=== PATIENT | female | born 1955 | race Caucasian/White ===

== ENCOUNTER 2020-08-24 14:47 | Outpatient (REF) | payer MEDICARE, SELFPAY ==
--- NOTE | 2020-08-24 | MM_ITS ---
EXAMINATION: BONE DENSITOMETRY CLINICAL INDICATION: Osteoporosis. COMPARISON: Previous BD dated 08/20/2018 and baseline BD dated 09/24/2006. TECHNIQUE: Using a [employer] DXA System (software version: 13.1) manufactured by [employer], dual-energy x-ray absorptiometry was performed of the lumbar spine and left hip. The images are of good technical quality. Summary results are attached. FINDINGS: AP SPINE L1-L4: There is dextrocurvature lumbar spine and some degenerative changes which may cause overestimation of the lumbar bone mineral density. Current: BMD 0.762 g/cm2, Z-score -1.5, T-score -3.5, osteoporosis, 1.0% decrease from previous, 6.5% decrease from baseline (<5% change is not significant). Prior: BMD 0.770 g/cm2. Baseline: BMD 0.815 g/cm2. LEFT FEMUR, NECK: Current: BMD 0.673 g/cm2, Z-score -0.9, T-score -2.6, osteoporosis. Prior: BMD 0.629 g/cm2. Baseline: BMD 0.650 g/cm2. LEFT FEMUR, TOTAL: Current: BMD 0.668 g/cm2, Z-score -1.2, T-score -2.7, osteoporosis, 2.6% decrease from previous, 2.9% decrease from baseline (<5% change is not significant). Prior: BMD 0.686 g/cm2. Baseline: BMD 0.688 g/cm2. IDENTIFIED RISK FACTORS: Osteoporosis, early menopause, secondary osteoporosis, anticonvulsants, hysterectomy, bilateral oophorectomy. HISTORY OF FRACTURE: None listed. MEDICATIONS: Calcium supplements or multivitamin, vitamin D. IMPRESSION: 1. DIAGNOSIS: Osteoporosis based on the lowest T-score value of -3.5 in the lumbar spine applying World Health Organization criteria. 2. 10-YEAR FRACTURE RISK PREDICTION, FRAX: Major osteoporotic fracture (clinical spine, forearm, hip or shoulder) 12.4%. Hip fracture 3.1%. 3. Treatment Recommendations: NOF guidelines recommend consideration for treatment in postmenopausal women and men age 50 and older presenting with the following: -A hip or vertebral (clinical or morphometric) fracture. -T-score less than or equal to -2.5 at the femoral neck or spine after appropriate evaluation to exclude secondary causes. -Low bone mass at the hip or spine and a 10-year fracture probability by FRAX of greater than or equal to 3% for hip fracture or greater than or equal to 20% for major osteoporotic fracture based on the [place] adapted WHO algorithm. 4. Other Recommendations: All treatment decisions require clinical judgment and consideration of individual patient factors, including patient preferences, comorbidities, previous drug use, risk factors not captured in the FRAX model (e.g. frailty, falls, vitamin D deficiency, increased bone turnover, interval significant decline in bone density) and possible under or overestimation of fracture risk by FRAX. Additional medical evaluation for secondary cause of low bone mineral density may be appropriate. FUTURE SCAN RECOMMENDATION: People with diagnosed cases of osteoporosis or at high risk for fracture should have regular bone mineral density tests. For patients eligible for Medicare, routine testing is allowed once every 2 years. The testing frequency can be increased to one year for patients who have rapidly progressing disease, those who are receiving or discontinuing medical therapy to restore bone mass, or have additional risk factors.
== END 2020-08-24 14:48 | disposition home or self-care (01) ==
LOC: HO.MAMMO 14:47
PROVIDERS: PCP Internal Medicine Endocrinology, Diabetes & Metabolism; Visit Provider Internal Medicine Endocrinology, Diabetes & Metabolism
DX: Z13.820 Encounter for screening for osteoporosis (principal); M81.0 Age-related osteoporosis without current pathological fracture; Z78.0 Asymptomatic menopausal state; Z79.899 Other long term (current) drug therapy; Z98.890 Other specified postprocedural states
CPT/HCPCS: 77080

== ENCOUNTER 2021-06-06 07:41 | Outpatient (REF) | payer MEDICARE, SELFPAY ==
--- NOTE | ~2021-06-06 | US_ITS ---
EXAMINATION: US ABDOMEN COMPLETE CLINICAL INFORMATION: Liver cysts. COMPARISON: Ultrasound abdomen 02/09/2020 and 04/10/2019. MR abdomen 02/26/2018. Abdominal ultrasound report January 2006. Images not available. TECHNIQUE: Real-time imaging of the abdominal viscera. FINDINGS: PANCREAS: Normal. ABDOMINAL AORTA: The aorta is normal in caliber. There is evidence of atherosclerotic disease. INFERIOR VENA CAVA: Visualized portions are normal. LIVER: The liver is normal in size. The liver contour is normal. Parenchymal echogenicity is normal. There are 4 cysts seen in the right lobe of the liver. The largest measures 2.7 cm. No other focal liver lesion is seen. There is no intrahepatic biliary duct dilatation seen. GALLBLADDER: Normal. The gallbladder is physiologically distended without evidence of stones, sludge, polyps, wall thickening or pericholecystic fluid. COMMON BILE DUCT: Normal in caliber measuring 0.4 cm in diameter. RIGHT KIDNEY: There is a 6 mm echogenic lesion in the anterior mid to lower pole of the right kidney No hydronephrosis. No renal calculi. The kidney measures 10.1 cm in maximum dimension. LEFT KIDNEY: There is a 7 mm echogenic lesion in the posterior lower pole of the left kidney. No hydronephrosis. No renal calculi. The kidney measures 10.2 cm in maximum dimension. SPLEEN: Normal. The spleen measures 7.6 cm in maximum dimension. FREE FLUID: None. US/US abdomen complete IMPRESSION: Stable liver cysts. Bilateral small echogenic lesions in the kidneys probably representing angiomyolipomas.
== END 2021-06-06 07:42 | disposition home or self-care (01) ==
LOC: HO.US 07:41
PROVIDERS: PCP Internal Medicine; Visit Provider Internal Medicine Gastroenterology
DX: K76.89 Other specified diseases of liver (principal)
CPT/HCPCS: 76700

== ENCOUNTER 2022-06-15 16:27 | Outpatient (REF) | payer MEDICARE, SELFPAY ==
[2022-06-15 18:23] LABS: Alanine Aminotransferase 11 U/L (0-31); Albumin Level 4.5 g/dL (3.5-5.0); Alkaline Phosphatase 68 U/L (39-117); Aspartate Amino Transferase 16 U/L (5-31); Bilirubin Direct 0.2 mg/dL (0.0-0.5); Bilirubin Total 0.4 mg/dL (0.0-1.0); Total Protein 7.2 g/dL (6.5-8.0)
== END 2022-06-15 16:28 | disposition home or self-care (01) ==
LOC: HO.LAB 16:27
PROVIDERS: PCP Family Medicine; Visit Provider Internal Medicine Gastroenterology
DX: R93.2 Abnormal findings on diagnostic imaging of liver and biliary tract (principal); K58.9 Irritable bowel syndrome, unspecified
CPT/HCPCS: 36415; 80076

== ENCOUNTER 2022-06-19 13:13 | Outpatient (REF) | payer MEDICARE, SELFPAY ==
[2022-06-22 16:37] LABS: Fecal Fat Qualitative NORMAL (NORMAL)
[2022-06-26 19:32] LABS: Pancreatic Elastase-1 >500 mcg/g
== END 2022-06-19 13:14 | disposition home or self-care (01) ==
LOC: HO.LNP 13:13
PROVIDERS: Visit Provider Internal Medicine Gastroenterology
DX: R93.2 Abnormal findings on diagnostic imaging of liver and biliary tract (principal); K58.9 Irritable bowel syndrome, unspecified
CPT/HCPCS: 82656; 82705

== ENCOUNTER 2022-09-08 12:51 | Outpatient (REF) | payer MEDICARE, SELFPAY ==
--- NOTE | ~2022-09-08 | MM_ITS ---
EXAMINATION: BONE DENSITOMETRY CLINICAL INDICATION: Menopause. COMPARISON: Previous BD dated 08/24/2020 and baseline BD dated 09/24/2006. TECHNIQUE: Using a [employer] DXA System (software version: 13.1) manufactured by [employer], dual-energy x-ray absorptiometry was performed of the lumbar spine and left hip. The images are of good technical quality. Summary results are attached. FINDINGS: AP SPINE L1-L4: Current: BMD 0.809 g/cm2, Z-score -1.1, T-score -3.1, osteoporosis, 6.2% increase from previous, 0.7% decrease from baseline (<5% change is not significant). Prior: BMD 0.762 g/cm2. Baseline: BMD 0.815 g/cm2. LEFT FEMUR, NECK: Current: BMD 0.594 g/cm2, Z-score -1.4, T-score -3.2, osteoporosis. Prior: BMD 0.673 g/cm2. Baseline: BMD 0.650 g/cm2. LEFT FEMUR, TOTAL: Current: BMD 0.607 g/cm2, Z-score -1.6, T-score -3.2, osteoporosis, 9.1% decrease from previous, 11.8% decrease from baseline (<5% change is not significant). Prior: BMD 0.668 g/cm2. Baseline: BMD 0.688 g/cm2. IDENTIFIED RISK FACTORS: Early menopause, height loss, hysterectomy, bilateral oophorectomy, anticonvulsant, secondary osteoporosis. HISTORY OF FRACTURE: None listed. MEDICATIONS: Vitamin D, calcium. MM/XR DEXA axial skeleton IMPRESSION: 1. DIAGNOSIS: Osteoporosis based on the lowest T-score value of -3.2 in the femur neck and total femur applying World Health Organization criteria. 2. 10-YEAR FRACTURE RISK PREDICTION, FRAX: According to the guidelines, FRAX calculation should only be performed on patients in the osteopenia bone density category. Therefore, FRAX was not performed on this patient. 3. Treatment Recommendations: NOF guidelines recommend consideration for treatment in postmenopausal women and men age 50 and older presenting with the following: -A hip or vertebral (clinical or morphometric) fracture. -T-score less than or equal to -2.5 at the femoral neck or spine after appropriate evaluation to exclude secondary causes. -Low bone mass at the hip or spine and a 10-year fracture probability by FRAX of greater than or equal to 3% for hip fracture or greater than or equal to 20% for major osteoporotic fracture based on the [place] adapted WHO algorithm. 4. Other Recommendations: All treatment decisions require clinical judgment and consideration of individual patient factors, including patient preferences, comorbidities, previous drug use, risk factors not captured in the FRAX model (e.g. frailty, falls, vitamin D deficiency, increased bone turnover, interval significant decline in bone density) and possible under or overestimation of fracture risk by FRAX. Additional medical evaluation for secondary cause of low bone mineral density may be appropriate. FUTURE SCAN RECOMMENDATION: People with diagnosed cases of osteoporosis or at high risk for fracture should have regular bone mineral density tests. For patients eligible for Medicare, routine testing is allowed once every 2 years. The testing frequency can be increased to one year for patients who have rapidly progressing disease, those who are receiving or discontinuing medical therapy to restore bone mass, or have additional risk factors.
== END 2022-09-08 12:52 | disposition home or self-care (01) ==
LOC: HO.MAMMO 12:51
PROVIDERS: Visit Provider Internal Medicine Endocrinology, Diabetes & Metabolism
DX: Z13.820 Encounter for screening for osteoporosis (principal); M81.0 Age-related osteoporosis without current pathological fracture; Z78.0 Asymptomatic menopausal state
CPT/HCPCS: 77080

== ENCOUNTER 2023-02-23 07:17 | Day surgery (SDC) | payer MEDICARE, SELFPAY ==
[2023-02-23 06:00] VITALS: BMI 19.8
--- NOTE | 2023-02-23 07:04 | HO.ANESPROP2 ---
REPLACED BY [facility] Past Medical History Medical History Acne Acute labyrinthitis Anxiety Asthma Breast CA EBV infection Gastritis HTN (hypertension) Hyperlipidemia IBS (irritable bowel syndrome) Internal hemorrhoid Meningioma Migraine Osteoporosis Surgical History Surgical History H/O colonoscopy H/O esophagogastroduodenoscopy H/O hemorrhoidectomy H/O: hysterectomy History of breast lump removal Meds Allergies Allergy/AdvReac Type Severity Reaction Status Date / Time animal dander [PET DANDER] Allergy Intermediate SNEEZING Unverified 08/05/20 16:02 feathers [FEATHERS] Allergy Intermediate COUGH, Unverified 08/05/20 16:02 SNEEZING scopolamine [SCOPOLAMINE] AdvReac Unknown PUPIL Unverified 08/05/20 16:02 DILATION surgical tape Allergy Unknown Uncoded 02/22/23 12:03 Active Medications: Current Medications Lactated Ringer's (Lr) 1,000 mls @ 50 mls/hr IVCONT .Q20H [facility] Home Medications Medication Instructions Recorded Confirmed Last Taken Type Artificial Tears 02/22/23 Unknown History Calcium 500 02/22/23 Unknown History Flonase 02/22/23 Unknown History ProAir HFA 02/22/23 Unknown History Vitamin D3 02/22/23 Unknown History amlodipine 5 mg tablet 5 mg PO DAILY 02/22/23 02/22/23 Unknown History dicyclomine 02/22/23 02/22/23 Unknown History escitalopram oxalate 20 mg tablet 20 mg PO DAILY 02/22/23 02/22/23 Unknown History lorazepam 0.5 mg tablet mg 02/22/23 Unknown History magnesium 02/22/23 Unknown History naltrexone 02/22/23 Unknown History oxcarbazepine 300 mg tablet 300 mg PO BID 02/22/23 02/22/23 Unknown History rizatriptan 5 mg tablet 5 mg QD-BID 02/22/23 02/22/23 Unknown History senna 02/22/23 Unknown History Exam Exam Date and Time: February 23, 2023703 Height,Weight and Vital Signs: Height 5 ft 4.75 in Weight 53.524 kg
[2023-02-23] MEDS: Lactated Ringers 1,000 ML 50 ML IVCONT (07:36)
[2023-02-23 07:45] VITALS: BP 131/71; PULSE 71; RESP 18; TEMP 36.4; O2SAT 99
--- NOTE | 2023-02-23 08:40 | MHC.SHP ---
Pre-Procedural Eval Section A Date of Service: 02/23/23 Section B Chief Complaint: screening,reflux Details of Present Illness: see H&P no changes Relevant Family History (Specify if Yes): No Relevant Social History: None Present Medications: see Short Stay Collaborative assessment Medical History: No relevant PMH History of Previous Operations: No relevant previous surgery Allergies: Allergies Allergy/AdvReac Type Severity Reaction Status Date / Time animal dander [PET DANDER] Allergy Intermediate SNEEZING Verified 02/23/23 07:46 feathers [FEATHERS] Allergy Intermediate COUGH, Verified 02/23/23 07:46 SNEEZING scopolamine [SCOPOLAMINE] AdvReac Unknown PUPIL Verified 02/23/23 07:46 DILATION surgical tape Allergy Unknown Uncoded 02/23/23 07:46 Review of Systems Sugical H&P ROS: Negative: Constitution, Cardiovascular, Respiratory, Neurological, Psychiatric, Hem-Onc, Allergic/Immunologic, Gastrointestinal, Genitourinary, Musculoskeletal, Integumentary, Endocrine and Eyes/Ears/Nose/Throat Plan I have reviewed the history and physical and performed a pertinent physical examination on my patient. No changes have occurred unless specified. Time Spent With Patient Time: Total time managing care of this patient today ____ minutes.
--- NOTE | 2023-02-23 09:08 | HO.ANESPROP2 ---
[facility] Past Medical History Medical History Acne Acute labyrinthitis Anxiety Asthma Breast CA EBV infection Gastritis HTN (hypertension) Hyperlipidemia IBS (irritable bowel syndrome) Internal hemorrhoid Meningioma Migraine Osteoporosis Surgical History Surgical History H/O colonoscopy H/O esophagogastroduodenoscopy H/O hemorrhoidectomy H/O: hysterectomy History of breast lump removal Social History Social History Patient Tobacco Use Status: Former Tobacco user Are you DNR?: No Advance Directives: No Advance Directives Information Provided: Yes Nutrition Risks: No Nutritional Risk Meds Allergies Allergy/AdvReac Type Severity Reaction Status Date / Time animal dander [PET DANDER] Allergy Intermediate SNEEZING Verified 02/23/23 07:46 feathers [FEATHERS] Allergy Intermediate COUGH, Verified 02/23/23 07:46 SNEEZING scopolamine [SCOPOLAMINE] AdvReac Unknown PUPIL Verified 02/23/23 07:46 DILATION surgical tape Allergy Unknown Uncoded 02/23/23 07:46 Active Medications: Current Medications Lactated Ringer's (Lr) 1,000 mls @ 50 mls/hr IVCONT .Q20H [facility] Last Admin: 02/23/23 07:36 Dose: 50 mls/hr Home Medications Medication Instructions Recorded Confirmed Last Taken Type Artificial Tears 02/22/23 Unknown History Calcium 500 02/22/23 Unknown History Flonase 02/22/23 Unknown History ProAir HFA 02/22/23 Unknown History Vitamin D3 02/22/23 Unknown History amlodipine 5 mg tablet 5 mg PO DAILY 02/22/23 02/22/23 Unknown History dicyclomine 02/22/23 02/22/23 Unknown History escitalopram oxalate 20 mg tablet 20 mg PO DAILY 02/22/23 02/22/23 Unknown History lorazepam 0.5 mg tablet mg 02/22/23 Unknown History magnesium 02/22/23 Unknown History naltrexone 02/22/23 Unknown History oxcarbazepine 300 mg tablet 300 mg PO BID 02/22/23 02/22/23 Unknown History rizatriptan 5 mg tablet 5 mg QD-BID 02/22/23 02/22/23 Unknown History senna 02/22/23 Unknown History Exam Exam Date and Time: February 23, 2023 0908 Height,Weight and Vital Signs: Height 5 ft 4.75 in Weight 53.524 kg Last Vital Signs Temp 97.6 F 02/23/23 07:45 Pulse 71 02/23/23 07:45 Resp 18 02/23/23 07:45 BP 131/71 02/23/23 07:45 Pulse Ox 99 02/23/23 07:45 O2 Del Method Room Air 02/23/23 07:45 Airway Mallampati Class: II TM Dist: >3cm Neck ROM: Full Heart: RRR Lungs: CTA Assessment and Plan Final Anesthetic Review Final Preanesthetic Review: Meds/Allgs Chart Reviewed, Consent Obtained/Reviewed and Anes Risks/Benef Reviewed Patient Risk: Low Procedure Risk: Low Anesthetic Plan Anesthetic Plan: MAC: Disposition: Standard PACU
[2023-02-23 09:32] VITALS: BP 100/51; PULSE 67; RESP 16; TEMP 36.4; O2SAT 99
--- NOTE | 2023-02-23 09:37 | P.BOP_ITS ---
Brief Operative Note Date of Service: 02/23/23 Pre-op diagnosis: gerd screening Post-op diagnosis: same Procedure: egd colon Surgeon: Juan Felipe Anesthesia: MAC Was an Engineering Consultant used for this Procedure?: No Estimated blood loss (mL): 5 Pathology: other Condition: stable Disposition: PACU
[2023-02-23 09:48] VITALS: BP 121/64; PULSE 71; RESP 18; TEMP 36.4; O2SAT 99
--- NOTE | 2023-02-23 10:17 | OP_ITS ---
DATE OF SERVICE: 02/23/2023 SURGEON: Juan Felipe MD INDICATIONS: 1. Helicobacter pylori infection. 2. Gastroesophageal reflux disease. 3. Colon cancer screening. PREOPERATIVE DIAGNOSIS: POSTOPERATIVE DIAGNOSIS: PROCEDURE PERFORMED: Upper endoscopy with biopsy, colonoscopy to the terminal ileum. ESTIMATED BLOOD LOSS: COMPLICATIONS: ANESTHESIA: Monitored anesthesia care. ASSISTANTS: SPECIMENS: DESCRIPTION OF PROCEDURE: History and physical performed. The risks and benefits of the procedure explained to the patient. Informed consent was obtained. The patient was placed in left lateral decubitus position. The Olympus video gastroscope was introduced into the esophagus, stomach, and duodenum. Examination was performed. The scope was removed. She was repositioned for colonoscopy. A digital rectal exam was performed and was found to be normal. The Olympus pediatric video colonoscope was introduced into the rectum and advanced to the cecum without difficulty. The cecum was identified by transillumination, palpation, and identification of the ileocecal valve. Examination was performed. The scope was removed. She tolerated the procedure well and was taken to recovery in stable condition. FINDINGS: Upper endoscopy: 1. Esophagus: The esophagus was normal. The EG junction was slightly irregular. This was biopsied. 2. Stomach: Stomach showed no evidence of masses, ulcers, or polyps. Biopsies were obtained from the antrum, because of the patient's history of H pylori infection. 3. Duodenum: The bulb and 2nd portion were normal. Colonoscopy: The terminal ileum was normal. The visualized colonic mucosa was normal. The quality of prep was good. No polyps were identified. There was mild sigmoid diverticulosis. Retroflexed examination showed small internal hemorrhoids. IMPRESSION: 1. Normal upper endoscopy. 2. Normal colonoscopy. RECOMMENDATION: 1. Follow up the biopsy results. 2. Screening colonoscopy is recommended in 10 years for average risk individuals. MD YASHIRA Posey/STEPHEN / [phone]
--- NOTE | 2023-02-23 10:48 | HO.POSTANES ---
Post Anesthesia Evaluation Post Anesthesia Evaluation Vital Signs: Vital Signs Temp Pulse Resp BP Pulse Ox O2 Del Method 02/23/23 09:48 97.6 F 71 18 121/64 99 Room Air 02/23/23 09:32 97.5 F 67 16 100/51 L 99 Room Air 02/23/23 07:45 97.6 F 71 18 131/71 99 Room Air Anesthesia: Monitored Mental Status: Awake Pain Control: Satisfactory Nausea/Vomiting: None Hydration: Adequate Anesthesia-Related Issues: No Anes. Related Issues
== END 2023-02-23 10:30 | disposition home or self-care (01) ==
PROVIDERS: PCP Family Medicine; Visit Provider Internal Medicine Gastroenterology
PROC: (CPT 43239; principal; 2023-02-23 08:20)
DX: Z12.11 Encounter for screening for malignant neoplasm of colon (principal); Z86.010 Personal history of colon polyps; Z83.71 Family history of colonic polyps; K57.30 Diverticulosis of large intestine without perforation or abscess without bleeding; K64.8 Other hemorrhoids; K58.9 Irritable bowel syndrome, unspecified; K21.9 Gastro-esophageal reflux disease without esophagitis; K29.50 Unspecified chronic gastritis without bleeding; Z86.19 Personal history of other infectious and parasitic diseases; D32.0 Benign neoplasm of cerebral meninges; I10 Essential (primary) hypertension; M81.0 Age-related osteoporosis without current pathological fracture; J45.909 Unspecified asthma, uncomplicated; E78.5 Hyperlipidemia, unspecified; Z86.16 Personal history of COVID-19; R53.83 Other fatigue; Z85.3 Personal history of malignant neoplasm of breast; H83.09 Labyrinthitis, unspecified ear; F41.1 Generalized anxiety disorder; Z87.891 Personal history of nicotine dependence; Z79.899 Other long term (current) drug therapy
CPT/HCPCS: 43239; G0105; 88305; 88342

== ENCOUNTER 2024-09-10 13:45 | Outpatient (REF) | payer MEDICARE, SELFPAY ==
--- NOTE | ~2024-09-10 | MM_ITS ---
EXAMINATION: BONE DENSITOMETRY CLINICAL INDICATION: Age-related osteoporosis without current pathological fracture. COMPARISON: Previous BD dated 09/08/2022 and baseline BD dated 09/24/2006. TECHNIQUE: Using a [employer] DXA System (software version: 13.1) manufactured by [employer], dual-energy x-ray absorptiometry was performed of the lumbar spine and left hip. The images are of good technical quality. Summary results are attached. FINDINGS: LEFT FEMUR, NECK: Current: BMD 0.605 g/cm2, Z-score -1.3, T-score -3.1, osteoporosis. Prior: BMD 0.594 g/cm2. Baseline: BMD 0.650 g/cm2. LEFT FEMUR, TOTAL: Current: BMD 0.581 g/cm2, Z-score -1.8, T-score -3.4, osteoporosis, 4.3% decrease from previous, 15.6% decrease from baseline (<5% change is not significant). Prior: BMD 0.607 g/cm2. Baseline: BMD 0.688 g/cm2. AP SPINE L1-L4: Current: BMD 0.761 g/cm2, Z-score -1.5, T-score -3.5, osteoporosis, 5.9% decrease from previous, 6.6% decrease from baseline (<5% change is not significant). Prior: BMD 0.809 g/cm2. Baseline: BMD 0.815 g/cm2. IDENTIFIED RISK FACTORS: Early menopause, height loss, history of fracture (adult), bilateral oophorectomy, anticonvulsants, hysterectomy, osteoporosis, secondary osteoporosis. HISTORY OF FRACTURE: Rib. MEDICATIONS: Calcium, vitamin D. MM/XR DEXA axial skeleton IMPRESSION: 1. DIAGNOSIS: Osteoporosis based on the lowest T-score value of -3.5 in the lumbar spine applying World Health Organization criteria. 2. 10-YEAR FRACTURE RISK PREDICTION, FRAX: According to the guidelines, FRAX calculation should only be performed on patients in the osteopenia bone density category. Therefore, FRAX was not performed on this patient. 3. Treatment Recommendations: NOF guidelines recommend consideration for treatment in postmenopausal women and men age 50 and older presenting with the following: -A hip or vertebral (clinical or morphometric) fracture. -T-score less than or equal to -2.5 at the femoral neck or spine after appropriate evaluation to exclude secondary causes. -Low bone mass at the hip or spine and a 10-year fracture probability by FRAX of greater than or equal to 3% for hip fracture or greater than or equal to 20% for major osteoporotic fracture based on the [place] adapted WHO algorithm. 4. Other Recommendations: All treatment decisions require clinical judgment and consideration of individual patient factors, including patient preferences, comorbidities, previous drug use, risk factors not captured in the FRAX model (e.g. frailty, falls, vitamin D deficiency, increased bone turnover, interval significant decline in bone density) and possible under or overestimation of fracture risk by FRAX. Additional medical evaluation for secondary cause of low bone mineral density may be appropriate. FUTURE SCAN RECOMMENDATION: People with diagnosed cases of osteoporosis or at high risk for fracture should have regular bone mineral density tests. For patients eligible for Medicare, routine testing is allowed once every 2 years. The testing frequency can be increased to one year for patients who have rapidly progressing disease, those who are receiving or discontinuing medical therapy to restore bone mass, or have additional risk factors. Electronically signed by: Rock Dalton MD 09/11/2024 02:32 PM EDT
== END 2024-09-10 13:46 | disposition home or self-care (01) ==
LOC: HO.MAMMO 13:45
PROVIDERS: PCP Family Medicine; Visit Provider Physician Assistant
DX: M81.0 Age-related osteoporosis without current pathological fracture (principal)
CPT/HCPCS: 77080

== ENCOUNTER 2025-04-08 07:51 | Outpatient (REF) | payer MEDICARE, SELFPAY ==
--- NOTE | ~2025-04-08 | US_ITS ---
EXAMINATION: US ABDOMEN HISTORY: GENERALIZED ABD PAIN TECHNIQUE: Real-time grayscale ultrasound imaging of the abdomen was performed and images were reviewed. COMPARISON: Comparison is made with the prior examination dated 06/06/2021. FINDINGS: Liver: The liver is normal in size. The liver demonstrates normal homogeneous echotexture. There are multiple simple cysts measuring up to 3.6 x 3.3 x 3.3 cm. No intrahepatic biliary ductal dilatation is identified. There is normal hepatopedal flow in the portal vein. Gallbladder and biliary tree: The gallbladder is unremarkable, without evidence of calculi, wall thickening, or pericholecystic fluid. There is no sonographic Winters sign. The common bile duct is normal in caliber measuring 4 mm. Kidneys: The right kidney measures 9.7 cm in length and demonstrates an 8 mm hyperechoic focus in the interpolar region which likely represents an angiomyolipoma (previously 6 mm in size). The left kidney measures 9.7 cm in length and demonstrates a 10 x 9 x 7 mm echogenic focus in the interpolar region which likely represents an angiomyolipoma (previously 8 mm in size). There is no hydronephrosis. Pancreas: The pancreatic head, neck, and body are unremarkable. The pancreatic tail is obscured by bowel gas. Spleen: The spleen is normal in size and contour, measuring 6.4 cm in length. Abdominal aorta and inferior vena cava: The visualized portions of the abdominal aorta and inferior vena cava are normal in caliber. There is no free fluid in the abdomen. 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 Otherwise unremarkable abdominal ultrasound Electronically signed by: Deshawn Monroy MD 04/08/2025 08:48 AM EDT
== END 2025-04-08 07:52 | disposition home or self-care (01) ==
LOC: HO.US 07:51
PROVIDERS: PCP Family Medicine; Visit Provider Internal Medicine Gastroenterology
DX: R10.84 Generalized abdominal pain (principal)
CPT/HCPCS: 76700

== ENCOUNTER → 2025-04-08 07:54 | Outpatient (BNV) | payer MEDICARE, SELFPAY | PROVIDERS: PCP Family Medicine; Visit Provider Radiology Diagnostic Radiology | DX: Q44.6 Cystic disease of liver (principal) | CPT/HCPCS: 76700 ==

== ENCOUNTER 2025-05-18 12:06 | Outpatient (REF) | payer MEDICARE, SELFPAY ==
--- OUTSIDE RECORDS SUMMARY | 2025-05-18 12:46 | XMS_ITS | Continuity of Care Document ---
Author Organization [facility], Main Office Address [address] [place] [address] [place] [id number] Care Team Providers Care Customer Service Sales Associate Name Role Phone LITZY FELIPE JR Architect Internship [phone] NIKKI LI Sales Designer EREN KATE Senior Software Systems Engineer [facility] Psychiatrist [facility] CLAIMS ADJUSTER SUPERVISOR Slot Operations Manager JADEN CROWE Psychiatrist EMRE CHACON Primary Care Provider FABIANA ROSARIO Neurologist TOBY BHATT Dialysis Clinical Manager Assessment No assessment recorded. Plan of Treatment Reminders Order Date Submit Date Provider Last Modified By Organization Details Last Modified Time Details Appointments [id number] 2024 01:30P M Emre Chacon MD Not available Not available Not available Lab None recorded. Referral None recorded. Procedures None recorded. Surgeries None recorded. Imaging None recorded. Medication Orders amlodipin e 5 mg tablet 2024 025 [facility] #[id number], [address], [place], [address], 05/13/2025 13:18:18 Patient TargetsNo targets recorded. Patient Instructions Encounter Date Encounter Id Patient Instructions Last Modified By Organization Details Last Modified Time 05/13/2025 [id number] osteoporosis: care instructions [email or web address] Not available 05/13/2025 13:27:29 high blood pressure: care instructions [email or web address] Not available 05/13/2025 13:18:16 learning about high blood pressure ckokar Not available 05/13/2025 13:18:16 Reason for Referral None Reported. Problems Name Problem SNOMED Code Status Onset Date Resolution Date Notes Provider Name and Address Organization Details Recorded Time Left lower quadrant pain 964747920 Completed 200806/25/2014 RECORDED 07/13/20 09 8:24AM BY MARYLIN OSULLIVAN MA, HUMBERTO ON/ADDEN DUM Not Available [facility] 4 12:35:44 Blood chemistr y outside referenc e range 066345562 Completed 201206/25/2014 RECORDED 07/30/20 13 1:35PM BY MARYLIN OSULLIVAN MA, ANNOTATI ON/ADDEN DUM Not Available [facility] 4 12:35:44 Acute bronchit is 42542019 Completed 201106/25/2014 IMPRESSI ON: SAMPLES OF PROAIR AND ADVAIR TO PT, NO PREDNISO NE NEEDED; RECORDED 07/17/20 12 7:53AM BY CRIS ZAPATA MA, HUMBERTO ON/ADDEN DUM Not Available [facility] 4 12:35:44 Acute sinusiti s 03594102 Completed 201206/25/2014 RECORDED 07/30/20 13 1:35PM BY MARYLIN OSULLIVAN MA, ANNOTATI ON/ADDEN DUM Not Available [facility] 4 12:35:44 Anemia 056327036 Completed 200906/25/2014 RECORDED 06/21/20 10 8:23AM BY BRAD ZARAGOZA MD, JOANATI ON/ADDEN DUM Not Available [facility] 4 12:35:44 Adult health examinat ion Completed 201306/25/2014 RECORDED 04/21/20 14 8:34AM BY MARYLIN OSULLIVAN MA, ANNOTATI ON/ADDEN DUM Joselyn Salmeron PA-C [address] [facility] [address], [place], [address] , [facility] 3 10:01:37 Acute asthma 348618919 Completed 200906/25/2014 RECORDED 06/21/20 10 8:30AM BY BRAD ZARAGOZA MD, ANNOTATI ON/ADDEN DUM Not Available [facility] 4 12:35:44 Primary malignan t neoplasm of female breast 87546768 Completed 201006/25/2014 RECORDED 03/17/20 11 11:43AM BY MARYLIN OSULLIVAN MA, ANNOTATI ON/ADDEN DUM Not Available [facility] 4 12:35:45 Screenin g for malignan t neoplasm of breast Completed 201306/25/2014 RECORDED 03/10/20 14 7:49AM BY AJAY BURNS I, ANNOTATI ON/ADDEN DUM Not Available [facility] 4 12:35:45 Impacted cerumen 80826740 Completed 201106/25/2014 IMPRESSI ON: REMOVED SUCCESSF ULLY; RECORDED 01/09/20 12 7:42AM BY BRAD ZARAGOZA MD, ANNOTATI ON/ADDEN DUM ARIS Thao [facility] 7 09:46:39 Screenin g for malignan t neoplasm of cervix Completed 201106/25/2014 RECORDED 07/17/20 12 7:54AM BY CRIS ZAPATA MA, ANNOTATI ON/ADDEN DUM Not Available [facility] 4 12:35:45 Screenin g for malignan t neoplasm of colon Completed 201306/25/2014 RECORDED 03/10/20 14 7:48AM BY AJAY BURNS I, ANNOTATI ON/ADDEN DUM Not Available [facility] 4 12:35:45 Respirat ory finding 918820693 Completed 200806/25/2014 RECORDED 05/27/20 09 3:07PM BY ARIS IVY, ANNOTATI ON/ADDEN DUM Not Available [facility] 4 12:35:45 Dysuria 05505685 Completed 200806/25/2014 RECORDED 07/13/20 09 8:24AM BY MARYLIN OSULLIVAN MA, ANNOTATI ON/ADDEN DUM Not Available [facility] 4 12:35:45 Elevated blood-pr essure reading without diagnosi s of hyperten dru 076329563 Completed 201206/25/2014 RECORDED 09/12/20 13 9:52AM BY MARYLIN OSULLIVAN MA, ANNOTATI ON/ADDEN DUM Not Available [facility] 4 12:35:45 Enthesop athy of hip region 16849888 Completed 201106/25/2014 IMPRESSI ON: ? DISCOMFO RT IN GROIN AREA, POSSIBLE HIP FLEXOR STRAIN.; RECORDED 01/09/20 12 7:42AM BY BRAD ZARAGOZA MD, ANNOTATI ON/ADDEN DUM Not Available [facility] 4 12:35:45 External hemorrho ids 51041228 Completed 201106/25/2014 RECORDED 07/17/20 12 7:54AM BY CRIS ZAPATA MA, ANNOTATI ON/ADDEN DUM Not Available [facility] 4 12:35:45 Malaise and fatigue 722200866 Completed 201311/13/2023 Emre Chacon MD [address] [facility] [address], [facility] [place], [address] , [facility] 3 13:27:35 Influenz a vaccine needed 77076797331 06 Completed 201206/25/2014 RECORDED 11/13/20 13 8:58AM BY MARYLIN OSULLIVAN MA, ANNOTATI ON/ADDEN DUM Not Available [facility] 4 12:35:45 Immuniza tion refused Completed 201206/25/2014 STORY: FLU SHOT; RECORDED 10/01/20 13 12:44PM BY MARYLIN OSULLIVAN MA, ANNOTATI ON/ADDEN DUM Not Available [facility] 4 12:35:45 Internal hemorrho ids 27862535 Completed 201206/25/2014 RECORDED 11/13/20 13 8:58AM BY MARYLIN OSULLIVAN MA, ANNOTATI ON/ADDEN DUM Not Available [facility] 4 12:35:45 Administ ration of diphther ia and tetanus vaccine Completed 201206/25/2014 RECORDED 07/30/20 13 1:36PM BY MARYLIN OSULLIVAN MA, HUMBERTO ON/ADDEN DUM Not Available [facility] 4 12:35:46 Vitreous degenera tion 02837337 Active 2013 JORGE OZUNA I (OPTOMET RIST) ARIS Navarro [place] - [facility] 2 11:39:48 Left lower quadrant pain 832480835 Completed 200806/26/2014 RECORDED 07/13/20 09 8:24AM BY MARYLIN OSULLIVAN MA, HUMBERTO ON/ADDEN DUM Not Available [facility] 4 03:41:52 Blood chemistr y outside referenc e range 747257864 Completed 201206/26/2014 RECORDED 07/30/20 13 1:35PM BY MARYLIN OSULLIVAN MA, ANNOTSILVANA ON/ADDEN DUM Not Available [facility] 4 03:41:52 Acute bronchit is 00551883 Completed 201106/26/2014 IMPRESSI ON: SAMPLES OF PROAIR AND ADVAIR TO PT, NO PREDNISO NE NEEDED; RECORDED 07/17/20 12 7:53AM BY CRIS ZAPATA MA, ANNOTATI ON/ADDEN DUM Not Available [facility] 4 03:41:52 Acute sinusiti s 20810505 Completed 201206/26/2014 RECORDED 07/30/20 13 1:35PM BY MARYLIN OSULLIVAN MA, ANNOTATI ON/ADDEN DUM Not Available [facility] 4 03:41:52 Anemia 734201151 Completed 200906/26/2014 RECORDED 06/21/20 10 8:23AM BY BRAD ZARAGOZA MD, JOANATI ON/ADDEN DUM Not Available [facility] 4 03:41:52 Adult health examinat ion Completed 201306/26/2014 RECORDED 04/21/20 14 8:34AM BY MARYLIN OSULLIVAN MA, ANNOTATI ON/ADDEN DUM Joselyn Salmeron PA-C [address], [place], [address] , [facility] 3 10:01:37 Acute asthma 594320513 Completed 200906/26/2014 RECORDED 06/21/20 10 8:30AM BY BRAD ZARAGOZA MD, ANNOTATI ON/ADDEN DUM Not Available [facility] 4 03:41:52 Primary malignan t neoplasm of female breast 47485226 Completed 201006/26/2014 RECORDED 03/17/20 11 11:43AM BY MARYLIN OSULLIVAN MA, ANNOTATI ON/ADDEN DUM Not Available [facility] 4 03:41:52 Screenin g for malignan t neoplasm of breast Completed 201306/26/2014 RECORDED 03/10/20 14 7:49AM BY AJAY BURNS I, ANNOTATI ON/ADDEN DUM Not Available [facility] 4 03:41:52 Impacted cerumen 68734919 Completed 201106/26/2014 IMPRESSI ON: REMOVED SUCCESSF ULLY; RECORDED 01/09/20 12 7:42AM BY BRAD ZARAGOZA MD, ANNOTATI ON/ADDEN DUM Marylin luna MA null, [facility] 7 09:46:39 Screenin g for malignan t neoplasm of cervix Completed 201106/26/2014 RECORDED 07/17/20 12 7:54AM BY CRIS ZAPATA MA, ANNOTATI ON/ADDEN DUM Not Available [facility] 4 03:41:53 Screenin g for malignan t neoplasm of colon Completed 201306/26/2014 RECORDED 03/10/20 14 7:48AM BY AJAY BURNS I, ANNOTATI ON/ADDEN DUM Not Available [facility] 4 03:41:53 Respirat ory finding 328832988 Completed 200806/26/2014 RECORDED 05/27/20 09 3:07PM BY ARIS IVY, JOANATI ON/ADDEN DUM Not Available [facility] 4 03:41:53 Dysuria 73756773 Completed 200806/26/2014 RECORDED 07/13/20 09 8:24AM BY MARYLIN OSULLIVAN MA, ANNOTATI ON/ADDEN DUM Not Available [facility] 4 03:41:53 Elevated blood-pr essure reading without diagnosi s of hyperten dru 210924892 Completed 201206/26/2014 RECORDED 09/12/20 13 9:52AM BY MARYLIN OSULLIVAN MA, ANNOTATI ON/ADDEN DUM Not Available [facility] 4 03:41:53 Enthesop athy of hip region 84461612 Completed 201106/26/2014 IMPRESSI ON: ? DISCOMFO RT IN GROIN AREA, POSSIBLE HIP FLEXOR STRAIN.; RECORDED 01/09/20 12 7:42AM BY BRAD ZARAGOZA MD, ANNOTATI ON/ADDEN DUM Not Available [facility] 4 03:41:53 External hemorrho ids 82367594 Completed 201106/26/2014 RECORDED 07/17/20 12 7:54AM BY CRIS ZAPATA MA, ANNOTATI ON/ADDEN DUM Not Available [facility] 4 03:41:53 Influenz a vaccine needed 10495933070 06 Completed 201206/26/2014 RECORDED 11/13/20 13 8:58AM BY MARYLIN OSULLIVAN MA, ANNOTATI ON/ADDEN DUM Not Available [facility] 4 03:41:53 Immuniza tion refused Completed 201206/26/2014 STORY: FLU SHOT; RECORDED 10/01/20 13 12:44PM BY MARYLIN OSULLIVAN MA, ANNOTATI ON/ADDEN DUM Not Available [facility] 4 03:41:53 Internal hemorrho ids 68648119 Completed 201206/26/2014 RECORDED 11/13/20 13 8:58AM BY MARYLIN OSULLIVAN MA, ANNOTATI ON/ADDEN DUM Not Available [facility] 4 03:41:53 Administ ration of diphther ia and tetanus vaccine Completed 201206/26/2014 RECORDED 07/30/20 13 1:36PM BY MARYLIN OSULLIVAN MA, ANNOTATI ON/ADDEN DUM Not Available [facility] 4 03:41:53 Carpal tunnel syndrome 02458519 Active ARIS Navarro, [facility] 2 11:39:48 Pain of sacroili ac joint 835266912 Completed 11/14/2024 Emre Chacon MD [address] [facility] [address], [place], [address] , [facility] 4 13:50:20 Major depressi on in partial remissio n 89443793 Active ARIS Navarro [facility] 2 11:39:48 Fatigue 62954013 Completed 02/06/2017 ARIS Thao [facility] 7 09:46:48 Obstruct gerard sleep apnea of adult 82670319515 03 Active 2014 does not use CPAP ARIS Navarro [facility] 2 11:39:48 Ex-smoke r 0383546 Active 2017 ARIS Navarro [facility] 2 11:39:48 Constipa tion 27118722 Active 2017 ARIS Navarro [facility] 2 11:39:49 Bilatera l cataract s 47474661 Active 2017 mild ARIS Navarro [facility] 2 11:39:48 Tubular adenoma 637283534 Active 2018 ARIS Navarro [facility] 2 11:39:48 Sleep apnea 67357551 Completed 201411/13/2023 Emre Chacon MD [address], [place], [address] , [facility] 3 13:28:08 Depressi ve disorder 15679883 Completed 201010/11/2020 Brad Zaragoza MD [address] [facility] [address], [place], [address] , [facility] 0 11:19:48 Family history of cancer of colon 051654685 Active 2018 Not Available [facility] 2 12:19:07 Backache 672560390 [facility] 2 11:39:48 Atrophic vaginiti s 90836773 Active 2010 ARIS Navarro, [facility] 2 11:39:48 Genital herpes simplex 97701151 Active 2013 [facility] 2 11:39:48 History of malignan t neoplasm of breast 612941139 Active 2013 [facility] 2 11:39:48 Hypercho lesterol emia 15738944 Completed 201611/13/2023 Emre Chacon MD [address], [place], [address] , [facility] 3 13:27:08 Benign meningio aris 878527999 Active 2019 right afua, followed by Dr Maik villagomez, has [facility]2y [facility] 2 11:39:48 History of total hysterec loretta 768580339 Active ARIS Navarro [facility] 2 11:39:48 Mild intermit tent asthma 576059289 Completed 201911/13/2023 Emre Chacon MD [address] [address], [place], [address] , [facility] 3 13:27:43 Hyperten dru monitori ng status 204427657 Active 2021 disenrol led ARIS Navarro, [facility] 2 11:39:48 Patient encounte r status 986323836 Completed 11/13/2023 Emre Chacon MD [address] [address], [place], [address] , [facility] 3 13:27:50 Irritabl e bowel syndrome characte rized by constipa tion 094000611 Active ARIS Navarro, [facility] 2 11:39:48 Ultrason ography of liver abnormal 17147443123 178656 Active liver cyst, followed GI. Emre Chacon MD [address] [address], [place], [address] , [facility] 3 13:28:37 Right upper quadrant pain 933889503 Completed 11/13/2023 Emre Chacon MD [address] [address], [place], [address] , [facility] 3 13:28:01 Gastroes ophageal reflux disease without esophagi tis 543381921 Active ARIS Navarro, [facility] 2 11:39:48 Abdomina l pain 29248797 Active 2024 MARS Moe [address] [address], [place], [address] , [facility] 5 09:39:25 Right-si ded piriform is syndrome 10689373990 9108 Active 2024 [facility] Marte, [facility] [address], [facility] [place], [address] , [facility] 5 09:43:05 Left lower quadrant pain 339365638 Completed 200806/02/2014 RECORDED 07/13/20 09 8:24AM BY MARYLIN OSULLIVAN MA, ANNOTATI ON/ADDEN DUM Not Available [facility] 4 14:15:03 Blood chemistr y outside referenc e range 408516108 Completed 201206/02/2014 RECORDED 07/30/20 13 1:35PM BY MARYLIN OSULLIVAN MA, ANNOTATI ON/ADDEN DUM Not Available [facility] 4 14:15:03 Acne 93250863 Active 2013 ARIS Navarro, [facility] 2 11:39:48 Acute bronchit is 46316045 Completed 201106/02/2014 IMPRESSI ON: SAMPLES OF PROAIR AND ADVAIR TO PT, NO PREDNISO NE NEEDED; RECORDED 07/17/20 12 7:53AM BY CRIS ZAPATA MA, ANNOTATI ON/ADDEN DUM Not Available [facility] 4 14:15:04 Acute sinusiti s 44053680 Completed 201206/02/2014 RECORDED 07/30/20 13 1:35PM BY MARYLIN OSULLIVAN MA, ANNOTATI ON/ADDEN DUM Not Available [facility] 4 14:15:04 Allergic rhinitis 76636216 Active 2013 ARIS Navarro [facility] 2 11:39:48 Anemia 128764698 Completed 200906/02/2014 RECORDED 06/21/20 10 8:23AM BY BRAD ZARAGOZA MD, ANNOTATI ON/ADDEN DUM Not Available [facility] 4 14:15:04 Anxiety state 300937907 Active 2010 Nikki Babb MA null, [facility] 2 11:39:48 Acute asthma 269666676 Completed 200906/02/2014 RECORDED 06/21/20 10 8:30AM BY BRAD ZARAGOZA MD, ANNOTATI ON/ADDEN DUM Not Available [facility] 4 14:15:04 Intrinsi c asthma 170048951 Active 2013 Nikkichristen Babb MA null, [facility] 2 11:39:48 Primary malignan t neoplasm of female breast 41286734 Completed 201006/02/2014 RECORDED 03/17/20 11 11:43AM BY MARYLIN OSULLIVAN MA, ANNOTATI ON/ADDEN DUM Not Available [facility] 4 14:15:04 Screenin g for malignan t neoplasm of breast Completed 201306/02/2014 RECORDED 03/10/20 14 7:49AM BY AJAY BURNS I, ANNOTATI ON/ADDEN DUM Not Available [facility] 4 14:15:04 Impacted cerumen 23149524 Completed 201106/02/2014 IMPRESSI ON: REMOVED SUCCESSF ULLY; RECORDED 01/09/20 12 7:42AM BY BRAD ZARAGOZA MD, ANNOTATI ON/ADDEN DUM Marylin luna MA null, [facility] 7 09:46:39 Screenin g for malignan t neoplasm of cervix Completed 201106/02/2014 RECORDED 07/17/20 12 7:54AM BY CRIS ZAPATA MA, ANNOTATI ON/ADDEN DUM Not Available [facility] 4 14:15:04 Screenin g for malignan t neoplasm of colon Completed 201306/02/2014 RECORDED 03/10/20 14 7:48AM BY AJAY BURNS I, ANNOTATI ON/ADDEN DUM Not Available [facility] 4 14:15:04 Respirat ory finding 479750958 Completed 200806/02/2014 RECORDED 05/27/20 09 3:07PM BY ARIS IVY, ANNOTATI ON/ADDEN DUM Not Available [facility] 4 14:15:04 Dysuria 85991164 Completed 200806/02/2014 RECORDED 07/13/20 09 8:24AM BY MARYLIN OSULLIVAN MA, ANNOTATI ON/ADDEN DUM Not Available [facility] 4 14:15:04 Elevated blood-pr essure reading without diagnosi s of hyperten dru 709434313 Completed 201206/02/2014 RECORDED 09/12/20 13 9:52AM BY MARYLIN OSULLIVAN MA, ANNOTATI ON/ADDEN DUM Not Available [facility] 4 14:15:05 Enthesop athy of hip region 74941301 Completed 201106/02/2014 IMPRESSI ON: ? DISCOMFO RT IN GROIN AREA, POSSIBLE HIP FLEXOR STRAIN.; RECORDED 01/09/20 12 7:42AM BY BRAD ZARAGOZA MD, ANNOTATI ON/ADDEN DUM Not Available [facility] 4 14:15:05 Essentia l hyperten dru 67336211 Active 2013 Nikki Babb MA [facility], [facility] 2 11:39:48 External hemorrho ids 83525756 Completed 201106/02/2014 RECORDED 07/17/20 12 7:54AM BY CRIS ZAPATA MA, ANNOTATI ON/ADDEN DUM Not Available [facility] 4 14:15:05 Malaise and fatigue 584738858 Completed 201206/02/2014 RECORDED 07/30/20 13 1:36PM BY MARYLIN OSULLIVAN MA, ANNOTATI ON/ADDEN DUM Emre Chacon MD [address] [facility] [address], [place], [address] , [facility] 3 13:27:35 Influenz a vaccine needed 58014603121 06 Completed 201206/02/2014 RECORDED 11/13/20 13 8:58AM BY MARYLIN OSULLIVAN MA, ANNOTATI ON/ADDEN DUM Not Available [facility] 4 14:15:05 Hyperlip idemia 40127442 Active 2013 ARIS Navarro, [facility] 2 11:39:48 Impacted cerumen 59614834 Completed 201302/06/2017 ARIS Thao, [facility] 7 09:46:39 Immuniza tion refused Completed 201206/02/2014 STORY: FLU SHOT; RECORDED 10/01/20 13 12:44PM BY MARYLIN OSULLIVAN MA, ANNOTATI ON/ADDEN DUM Not Available [facility] 4 14:15:05 Insomnia 273367881 Completed 201311/13/2023 Emre Chacon MD [address] [facility], [facility] [place], [address] , [facility] 3 13:27:15 Internal hemorrho ids 44193612 Completed 201206/02/2014 RECORDED 11/13/20 13 8:58AM BY MARYLIN OSULLIVAN MA, ANNOTATI ON/ADDEN DUM Not Available [facility] 4 14:15:05 Irritabl e bowel syndrome 61469582 Active 2010 constipa tion predomin ant, followed [facility] and Dr Felipe Not Available [facility] 2 12:19:08 Benign neoplasm of cerebral meninges 07795302 Active 2013 COMPLETE D RADIATIO N AT [facility] 05/26/13- ARIS Navarro, [facility] 2 11:39:48 Migraine 84350933 Active 2013 ARIS Navarro, [facility] 2 11:39:48 Patient status finding 027899276 Completed 201308/03/2016 RECORDED 04/21/20 14 8:41AM BY MARYLIN OSULLIVAN MA, OFFICE VISIT ARIS Thao, [facility] 6 09:34:19 Patient status finding 872996978 Completed 201306/02/2014 RECORDED 03/10/20 14 7:49AM BY AJAY BURNS I, JOANATI ON/ADDEN DUM ARIS Thao, [facility] 6 09:34:19 Osteopor osis 97342744 Active 2013 ARIS Navarro, [facility] 2 11:39:48 Adult health examinat ion Completed 201106/02/2014 RECORDED 07/17/20 12 7:54AM BY CRIS ZAPATA MA, ANNOTATI ON/ADDEN DUM Joselyn Salmeron PA-C [address] [facility] [address], [place], [address] , [facility] 3 10:01:37 Administ ration of diphther ia and tetanus vaccine Completed 201206/02/2014 RECORDED 07/30/20 13 1:36PM BY MARYLIN OSULLIVAN MA, ANNOTATI ON/ADDEN DUM Not Available [facility] 4 14:15:06 Problem Notes None recorded. Procedures Surgical History Date Name Laterality Status Provider Name and Address Organization Details Recorded Time 025 Most Recent Mammogram completed Kassandra Oshea [facility] 03/11/2025 13:02:22 025 Mammogram Screening completed Kassandra Oshea [facility] 03/11/2025 13:01:42 024 Advanced Care Planning completed Lenore Reich [facility] 11/25/2024 11:40:21 023 Advanced Care Planning completed Emre Chacon MD [address], [place], [address], [facility] 11/13/2023 07:41:23 023 Colonoscopy completed Diane Toribio [facility] 02/27/2023 09:55:33 023 Endoscopic us exam esoph completed Diane Toribio [facility] 02/27/2023 09:55:17 022 Advanced Care Planning completed Lenore Reich [facility] 11/09/2022 12:17:09 022 Most Recent Bone Density completed Nikki Babb MA [facility] 11/07/2022 11:47:53 021 Advanced Care Planning completed Emre Chacon MD [address], [place], [address], [facility] 10/12/2021 08:51:22 021 Date of Last Pap Smear completed Cinthia Tariq [facility] 07/14/2021 15:58:24 020 Six-Item Cognitive Test completed Marylin blair MA [facility] 10/11/2020 10:56:55 019 Date of Last Colonoscopy completed Nadja Piper [facility] 03/22/2019 08:53:44 019 rectal polypectomy completed Mihaela Magana [facility] 03/24/2019 09:28:54 018 Dxa bone density rosey vrt fx completed Cinthia Tariq [facility] 08/30/2018 15:40:58 008 Hemorrhoidectomy completed Marylin blair MA [facility] 10/30/2014 08:54:27 000 Total Abdominal Hysterectomy completed Marylin blair MA [facility] 02/06/2017 09:55:35 000 lumpectomy of breast completed Marylin blair MA [facility] 10/11/2020 10:50:16 Imaging Results None recorded. Procedure Notes None recorded. Medical Equipment None Reported. Allergies Allergen ID Allergen Name Allergen Category Reaction Reaction Severity Criticality Documentation Date Start Date Code Code System Note Provider Name and Address Organization Details Recorded Time 31210 scopolami ne medicatio n Not available Not available Not available 07/30/20142014 9601 RxNorm Cinthia Tariq tc [facility] 0 13:24:22 1884 house dust allergeni c extract environme nt,medica tion Not available Not available Not available 06/02/20142013 65870 9 RxNorm Nikki Chris ARIS Babb [facility] 2 11:40:55 1885 latex environme nt,medica tion other Not available Not available 06/02/20142013 [id number] 91 RxNorm *sens itivi ty* ARIS Wolfe [facility] 4 09:26:40 [id number] animal dander environme nt Not available Not available Not available 03/03/2019 [id number] UNK [facility] 10:57[facility]13 Medications Name Sig Start Date Stop Date Status Note LastModified by Organization Details LastModified Time naltrexon e 6mg capsule 1 capsule po at bedtime PRN 10/12 completed Prescrib ed by [facility] Med: for peristal sis Not Available Not Available Not Available digestive enzymes tablet Take 1 tablet as needed by oral route with meals. active Not Available Not Available No t Available Miralax 17 gram/dose oral powder Take 17 g every day by oral route as needed. 11/14 completed Not Available Not Available Not Available Vitamin C 500 mg tablet Take 1 tablet every day by oral route. active Not Available Not Available No t Available L-Lysine 500 mg tablet Take 1 tablet every other day by oral route. 11/07 completed for Hermelinda Almazan Not Available Not Available Not Available citalopra m 10 mg tablet DAILY 07/30 completed RECORDED 07/30/20 13 1:44PM BY MARYLIN OSULLIVAN MA, OFFICE VISIT; Not Available Not Available Not Available valacyclo vir 1 gram tablet Take 1 tablet every day by oral route as needed for 5 days. 2023 active for cold sores Not Available Not Available Not Available senna 8.6 mg tablet Take 1 tablet every day by oral route as needed. 11/14 completed Not Available Not Available Not Available alendrona te 70 mg tablet active Not Available Not Available Not Available Excedrin Migraine 250 mg-250 mg-65 mg tablet Take 2 tablets every 6 hours by oral route as needed. active Not Available Not Available No t Available Zithromax Z-Bryon 250 mg tablet QD 08/27 completed RECORDED 09/29/20 08 11:16AM BY BYRON FRANKEL MD, MEDICATI ON AUTO-JUDY CTIVATIO N; Not Available Not Available Not Available sumatript an 50 mg tablet Take 1 tablet as needed by oral route. 10/11 completed Not Available Not Available Not Available amlodipin e 2.5 mg tablet Take 2 tablets every day by oral route for 90 days. 08/16 completed 07/18/22 pt will increase from 2.5 mg qd to 5 mg qd and f/u in 1 month Not Available Not Available Not Available oxcarbaze pine 300 mg tablet TAKE 1/2 TABLET BY MOUTH EVERY DAY AT BEDTIME active Not Available Not Available No t Available amlodipin e 5 mg tablet Take 1 tablet every day by oral route for 90 days. 2024 active Not Available Not Available Not Avai lable valacyclo vir 500 mg tablet Take 1 tablet twice a day by oral route for 90 days. 11/07 completed Not Available Not Available Not Available butalbita l-acetami nophen-ca ffeine 50 mg-325 mg-40 mg tablet TAKE 1 TABLET BY MOUTH EVERY 4 HOURS NEEDED. DO NOT EXCEED 6 TABS PER 24 HOURS. 10/12 completed Not Available Not Available Not Available Azelex 20 % topical cream Use two times daily to affected area 11/07 completed Not Available Not Available Not Available erythromy cierra 250 mg tablet TAKE 1/4 TABLET BY MOUTH AT BEDTIME 10/11 completed Not Available Not Available Not Available Hyoscyami ne Sulfate CR 0.375 mg capsule,e xtended release Take 1 capsule every 12 hours by oral route as needed. 08/29 completed for IBS Not Available Not Available Not Available Fluticaso ne Propionat e (Inhal) 50 mcg/BLIST inhl powd 2 SPRAYS DAILY, EACH SIDE 02/06 completed Not Available Not Available Not Available lorazepam 0.5 mg tablet TAKE 1 TABLET BY MOUTH EVERY DAY NEEDED active Not Available Not Available No t Available hyoscyami ne sulfate 0.125 mg tablet Take 1 tablet twice a day by oral route as needed. 02/15 completed for IBS Not Available Not Available Not Available Trileptal 150 mg tablet every 24 hours by oral route. 02/19 completed Not Available Not Available Not Available omeprazol e 20 mg capsule,d elayed release 02/19 completed Not Available Not Available Not Available zinc 50 mg tablet Take 1 tablet every day by oral route as needed. 11/14 completed Not Available Not Available Not Available Nasonex 50 mcg/actua tion Pacifica EACH SIDE DAILY 07/31 completed RECORDED 07/31/20 13 8:46AM BY BRAD ZARAGOZA MD, OFFICE VISIT; Not Available Not Available Not Available levofloxa cierra 500 mg tablet QD 04/02 completed RECORDED 05/09/20 10 3:53PM BY JUNE Camilo MD, MEDICATI ON AUTO-JUDY CTIVATIO N; Not Available Not Available Not Available L-Methion ine 500 mg tablet Take 1 tablet every day by oral route. 04/24 completed *ON HOLD* Not Available Not Available Not Available neomycin 500 mg tablet TAKE 1 TABLET BY MOUTH TWICE A DAY 10/11 completed Not Available Not Available Not Available albuterol sulfate HFA 90 mcg/actua tion aerosol inhaler TAKE 2 PUFFS BY MOUTH EVERY 4 HOURS NEEDED 11/14 completed Not Available Not Available Not Available fluticaso ne propionat e 50 mcg/actua tion nasal spray,quoc pension Inhale 1 spray every day by intranas al route. active Not Available Not Available No t Available dicyclomi ne 10 mg capsule TAKE 1 CAPSULE ORALLY 2-4 TIMES A DAY 30 DAYS active PRN Not Available Not Available No t Available nortripty line 50 mg capsule AT BEDTIME 01/27 completed RECORDED 01/28/20 14 8:16AM BY ÓGMEZ SPIVEY MA, OFFICE VISIT; Not Available Not Available Not Available amoxicill in 875 mg-potass ium clavulana te 125 mg tablet TWO TIMES DAILY 01/31 completed RECORDED 02/12/20 13 7:03AM BY BRAD ZARAGOZA MD, MEDICATI ON AUTO-JUDY CTIVATIO N; Not Available Not Available Not Available rizatript an 5 mg tablet TAKE 1 TABLET ONCE, MAY REPEAT AT 2 HOUR INTERVAL S DO NOT EXCEED 30 MG IN 24 HOURS active Not Available Not Available No t Available Adult Supposito cesar rectal 07/30 completed RECORDED 07/30/20 13 1:44PM BY MARYLIN OSULLIVAN MA, OFFICE VISIT;DR Faye FELIPE Not Available Not Available Not Available albuterol (refill) 90 mcg/actua tion aerosol inhaler Inhale 2 puffs every 4 hours by inhalati on route as needed. 02/06 completed Not Available Not Available Not Available escitalop babatunde 10 mg tablet Take 1 tablet every day by oral route for 30 days. 10/11 completed Not Available Not Available Not Available escitalop babatunde 20 mg tablet TAKE 1 TABLET BY MOUTH EVERY DAY active Not Available Not Available No t Available ezetimibe 10 mg tablet TAKE 1 TABLET BY MOUTH EVERYDAY AT BEDTIME active Not Available Not Available No t Available Vitamin D3 25 mcg (1,000 unit) capsule Take 3 capsules every day by oral route. active THREE TIMES A WEEK Not Available Not Available Not Available codeine-g uaifenesi n oral syrup Q 6HRS PRN COUGH 06/21 completed RECORDED 06/21/20 10 7:54AM BY MARYLIN OSULLIVAN MA, OFFICE VISIT; Not Available Not Available Not Available rosuvasta tin 5 mg tablet TAKE 1 TABLET BY MOUTH EVERYDAY AT BEDTIME 12/24 completed GI side effects Not Available Not Available Not Available escitalop babatunde 5 mg tablet every 24 hours by oral route. 07/01 completed Not Available Not Available Not Available ascorbic acid (vitamin C) 03/28 completed prn Not Available Not Available Not Available Artificia l Tears 2 drops OU, as needed - strength on bottle active Not Available Not Available No t Available choline with inositol - 500 mg po daily 04/24 completed for choleste rol- unsure of strength ON HOLD Not Available Not Available Not Available senna 1 po as needed for constipa tion 02/06 completed Not Available Not Available Not Available echinacea active takes prn Not Available Not Available Not Available Pamelor 1 CAP(S), QHS, 30 DAY(S) 10/11 completed Not Available Not Available Not Available Fish Oil 03/28 completed PRN Not Available Not Available Not Available Norvasc 1 TAB(S), 2.5 MG, ONCE A DAY, 30 DAY(S) 02/19 completed Not Available Not Available Not Available hyoscyami ne sulfate TWO TIMES DAILY, NEEDED 08/07 completed for IBS Not Available Not Available Not Available Saline Nasal Pacifica as needed via nostril active Not Available Not Available No t Available Ativan 1 TAB(S), 0.5 MG, PRN, 30 DAY(S) 02/14 completed Not Available Not Available Not Available hyoscyami ne BID 02/05 completed RECORDED 02/06/20 07 8:54AM BY MARYLIN OSULLIVAN MA, MEDICATI ON AUTO-JUDY CTIVATIO N;THIS ORDER DISCONTI NUED PER MEDI-SPA N. Not Available Not Available Not Available Valtrex 1 TAB(S), 1 G, PRN, 3 DAYS 02/14 completed Not Available Not Available Not Available Miralax 17 gram po daily, mixed with water 08/07 completed Not Available Not Available Not Available multivita min 1 tablet po daily active Not Available Not Available No t Available Tylenol Sinus NEEDED active Not Available Not Available No t Available Calcium 500 1 tablet po daily active Not Available Not Available No t Available Excedrin 07/17 completed RECORDED 07/17/20 12 12:54PM BY CRIS ZAPATA MA, OFFICE VISIT;OT C Not Available Not Available Not Available Zostavax (PF) 19,400 unit/0.65 mL subcutane ous suspensio n 02/06 completed Not Available Not Available Not Available Veramyst 27.5 mcg/actua tion nasal spray,quoc pension QD active RECORDED 07/13/20 09 8:25AM BY MARYLIN OSULLIVAN MA, OFFICE VISIT; Not Available Not Available Not Available Actonel 150 mg tablet MONTHLY 03/19 completed RECORDED 03/19/20 12 12:59PM BY MARYLIN OSULLIVAN MA, OFFICE VISIT;DR Faye LIU Not Available Not Available Not Available Gavilyte- C 240 gram-22.7 2 gram-6.72 gram-5.84 gram oral solution 03/03 completed Not Available Not Available Not Available lutein 10 mg tablet Take 1 tablet every day by oral route as needed. 04/08 completed Not Available Not Available Not Available Vitamin D3 125 mcg (5,000 unit) tablet Take 1 tablet every day by oral route. 03/28 completed Mixed with vitamin K Not Available Not Available Not Available Vitamin D3 50 mcg (2,000 unit) capsule Take 2 capsules every day by oral route. 04/08 completed Not Available Not Available Not Available antipyrin e-benzoca ine 5.5 %-1.4 % ear drops 3 TIMES PER DAY FILLING AFFECTED EAR CANAL 11/13 completed RECORDED 11/13/20 13 9:20AM BY MARYLIN OSULLIVAN MA, OFFICE VISIT; Not Available Not Available Not Available sorbitan monolaura te (bulk) 600 mg po daily 03/28 completed Not Available Not Available Not Available Fish Oil capsule Take 1 capsule every day by oral route. 05/14 completed ON HOLD Not Available Not Available Not Available Benefiber Healthy Shape 5 gram/7.4 gram oral powder Take 5 g every day by oral route as directed . active Not Available Not Available No t Available Daily Probiotic (10 Strains) 4 billion cell capsule Take 1 capsule every day by oral route. active MegaSpor e- as needed Not Available Not Available Not Available Fluzone High-Dose Quad (PF) 240 mcg/0.7 mL IM syringe ADM 0.7ML IM UTD 10/11 completed Not Available Not Available Not Available Vitals Date Recorded Body height Body mass index (BMI) Body weight Heart rate Oxygen saturation Oxygen saturation in Arterial blood by Pulse oximetry Body temperature Systolic blood pressure Diastolic blood pressure Provider Name and Address Organization Details Last Updated DateTime 5 164.47 cm 20.1 kg/m2 93222.0 8 g 80 /min 98 % 98 % 98.5 [degF] 122 mm[Hg] 70 mm[Hg] Benita Valentino MA [facility] 5 13:07:51 Social History Question Answer Notes LastModified by Organizat ion Details LastModified Time Tobacco Smoking Status Former Smoker ARIS Giordano [facility] 07/30/2014 09:34:04 Do You Have An Advance Directive? Yes Has Original HCP At Home Information not available 02/01/2016 Is Blood Transfusion Acceptable In An Emergency? Yes Information not available 02/01/2016 What Is Your Level Of Caffeine Consumption? Moderate 1 Cup Of Coffee Daily Information not available 03/28/2022 How Much Tobacco Do You Chew? None Information not available 02/01/2016 What Type Of Diet Are You Following? REGULAR Portion Control; No Added Salt Information not available 07/30/2014 Which Illicit Or Recreational Drugs Have You Used? None Information not available 07/30/2014 When Did You Quit Smoking? 16+yearssin celastcigar ette Information not available 10/11/2020 Are There Any Guns Present In Your Home? No Information not available 07/30/2014 Hard Of Hearing Or Deaf In One Or Both Ears? No Information not available 07/30/2014 Legally Blind In One Or Both Eyes? No Information not available 07/30/2014 Live Alone Or With Others? Alone Dog [email or web address] Information not available 11/07/2022 Do You Take Precautions To Prevent Distracted Driving? Yes Information not available 02/01/2016 How Often Do You Need To Have Someone Help You When You Read Instructions, Pamphlets, Or Other Written Material From Your Doctor Or Pharmacy? Never Information not available 02/01/2016 Have You Served In The ? No Information not available 08/03/2016 Have You Or Anyone In Your Household Had Any Of The Following Symptoms In The Last 14 Days: Sore Throat, Cough, Chills, Body Aches For Unknown Reasons, Shortness Of Breath For Unknown Reasons, Loss Of Smell, Loss Of Taste, Fever At Or Greater Than 100 Degrees Fahrenheit? No Information not available 10/11/2020 Are You Or Anyone In Your Household A Health Care Provider Or Emergency Responder? No Information not available 10/11/2020 To The Best Of Your Knowledge Have You Been In Close Proximity To Any Individual Who Tested Positive For COVID-19? No Information not available 10/11/2020 *AWV ONLY* Are You Presently Prescribed Opioid Medication By PCP Or Specialist? If YES -Provider Assess The Benefit For Other, Non-opioid Pain Therapies Instead, Even If The Patient Does Not Have OUD But Is Possibly At Risk. No Information not available 10/11/2020 What Was The Date Of Your Most Recent Tobacco Screening? 01/29/2025 Information not available 01/29/2025 How Many Children Do You Have? 0 Information not available 07/30/2014 What Is Your Current Pack Years? 10packyears Information not available 03/28/2022 Seat Belts Used Routinely Yes Information not available 02/01/2016 Are You Sexually Active? No Information not available 02/01/2016 Smoke Alarm In Home Yes Information not available 07/30/2014 At What Age Did You Start Smoking Tobacco? 20 Quit At 21 Information not available 02/01/2016 Are You Passively Exposed To Smoke? Yes Information not available 02/01/2016 Do You Use Sunscreen Routinely? No Information not available 02/01/2016 How Many Years Have You Smoked Tobacco? 1 Information not available 02/01/2016 Sex: Unknown Functional Status Question Answer Note LastModified by Organizat ion Details LastModified Time Do you use any illicit or recreational drugs? No Information not available 03/28/2022 Do you or have you ever used any other forms of tobacco or nicotine? No Information not available 03/28/2022 What is your level of alcohol consumption? None Information not available 07/30/2014 Do you or have you ever used smokeless tobacco? Never used smokeless tobacco Information not available 10/11/2020 Are you currently employed? No retired as of January 2015 Information not available 07/30/2014 Are you able to walk? YESWOREST Information not available 03/28/2022 Are you able to care for yourself? 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 Never used electronic cigarettes Information not available 10/11/2020 What is your exercise level? Moderate cardio (4-6 x week); treadmill, elliptical, bike, gym machines Information not available 07/30/2014 Mental Status None recorded. Family History Relationship Description Onset Age of this Age Resolved Age Notes LastModified by Organization Details LastModified Time Mother End stage chronic obstructive pulmonary disease [email or web address] s Not available 10/30/2014 08:54:32 Mother Coronary arterioscler osis bsolivanmatto s Not available 10/30/2014 08:54:32 Father Coronary arterioscler osis bsolivanmatto s Not available 10/30/2014 08:54:32 Father Atrial fibrillation bsolivanmatto s Not available 10/30/2014 08:54:32 Brother Neoplasm of brain 48 50 bsolivanmatto s Not available 07/18/2022 10:05:32 Paternal Grandmother Primary malignant neoplasm of stomach bsolivanmatto s Not available 10/30/2014 08:54:32 Unspecified Relation Malignant tumor of pancreas 80 patern al cousin carito s Not available 08/19/2018 11:14:16 Unspecified Relation Carcinoma of pancreas 80 cousin zako s Not available 03/03/2019 11:04:51 Medical History No medical history recorded. Gynecological History Statement/Question Response Date of Last Pap Smear 07/05/2021 Current Control Method Hysterectom y Date of Last Colonoscopy 03/14/2019 Most Recent Mammogram 03/10/2025 Most Recent Bone Density 09/08/2022 Obstetrics History GPAL:G 0 P 0 0 0 0 Immunizations Vaccine Type Date Status Note Provider Nam e and Address Organization Details Recorded Time zoster live 5 completed ARIS Navarro [facility] 11/07/2022 11:40:15 COVID-19, mRNA, LNP-S, PF, 30 mcg/0.3 mL dose 1 completed ARIS Navarro [facility] 11/07/2022 11:40:15 COVID-19, mRNA, LNP-S, PF, 30 mcg/0.3 mL dose 1 completed ARIS Navarro [facility] 11/07/2022 11:40:15 COVID-19, mRNA, LNP-S, PF, 30 mcg/0.3 mL dose 1 completed ARIS Navarro [facility] 11/07/2022 11:40:14 COVID-19, mRNA, LNP-S, PF, 30 mcg/0.3 mL dose, gian-sucrose 2 completed ARIS Navarro [facility] 11/07/2022 11:40:14 pneumococcal polysaccharide PPV23 0 completed ARIS Navarro [facility] 11/07/2022 11:40:14 Influenza, split virus, trivalent, PF 4 completed ARIS Navarro [facility] 11/07/2022 11:40:15 Influenza, split virus, quadrivalent, PF 5 completed Nikki Babb ARIS tc, [facility] 11/07/2022 11:40:15 Influenza, split virus, quadrivalent, PF 6 completed Nikki Babb [facility]IS tc, [facility] 11/07/2022 11:40:15 Influenza, split virus, quadrivalent, PF 9 completed Nikki Babb ARIS null, [facility] 11/07/2022 11:55:45 Influenza, split virus, quadrivalent, PF 8 completed Nikki Babb ARIS tc, [facility] 11/07/2022 11:55:45 Influenza, high-dose, quadrivalent, PF 0 completed Nikki Babb [facility]IS tc, [facility] 11/07/2022 11:55:45 Influenza, high-dose, quadrivalent, PF 1 completed Nikki Babb [facility], [facility] 11/07/2022 11:55:45 Influenza, split virus, quadrivalent, PF 7 completed Nikki Babb [facility] t[facility], [facility] 11/07/2022 11:55:45 COVID-19, mRNA, LNP-S, bivalent, PF, 30 mcg/0.3 mL dose 2 completed Nikki Babb [facility]IS tc, [facility] 11/07/2022 11:55:45 Influenza, high-dose, quadrivalent, PF 2 completed ARIS Navarro, [facility] 11/07/2022 11:55:45 COVID-19, mRNA, LNP-S, PF, gian-sucrose, 30 mcg/0.3 mL 3 completed ARIS Gutierrez, [facility] 05/14/2024 12:52:27 Td (adult), 2 Lf tetanus toxoid, preservative free, adsorbed 7 completed ARIS Navarro, [facility] 11/07/2022 11:40:15 Tdap 3 completed ARIS Navarro, [facility] 11/07/2022 11:40:14 Influenza, split virus, trivalent, preservative 3 completed ARIS Navarro, [facility] 11/07/2022 11:40:14 Influenza, adjuvanted, trivalent, PF 4 completed Diane montez, [facility] 09/23/2024 11:44:06 COVID-19, mRNA, LNP-S, PF, 50 mcg/0.5 mL 5 completed Diane montez [facility] 01/12/2025 08:40:57 Td (adult), 2 Lf tetanus toxoid, preservative free, adsorbed 3 completed ARIS Stearns, [facility] 04/24/2023 13:53:21 Influenza, high-dose, quadrivalent, PF 3 completed Joselyn Salmeron PA-C [address], [address], [facility] 08/07/2023 10:29:54 Past Encounters Encounter ID Performer Location Encounter Start Date Encounter Closed Date Diagnosis/Indication Diagnosis SNOMED-CT Code Diagnosis ICD10 Code Diagnosis Note [id number] Emre Chacon MD Main Office [address] [id number] 05/13/2025 13:01:43 05/13/2025 13:30:45 Essential hypertension 67216015 I10 BP well controlled on current dose. Will continue, tolerating well. Obstructiv e sleep apnea of adult 9389687676 103 G47.33 Cannot tolerate CPAP, working on positon.De isaac sx. Will monitor for now. Benign meningioma 372198 006 D32.9 Follow neuro, stable. Gets MRI every yrs Lipoma of intra-abdominal organs 90096067 D17.71 Asymptomat ic agreed to monitor for now. Osteoporosis 53219802 M8 1.0 Follows endo.To get reclast. Health Concerns Section Related Observation LastModified by Organization Detai ls LastModified Time None Recorded Concern Status LastModified by Organization Details LastModified Time None Recorded Payers Encounter Date Sequence Insurance Name Policy Number Policy Zhang Covered Member ID Zhang Member ID Guarantor Name 05/13/2025 1 [place] [employer] Ewa Elliott [id number] Ewa Elliott 05/13/2025 2 [place] [id number] Ewa Elliott [id number] Ewa Elliott Notes Date Note Type Note Provider Name and Address Organization Details Recorded Time 05/13/2025 text/html Hypertension F/UReported bypatient.Associat ed Symptoms:no dizziness; no lightheadedness; no chest pain; no shortness of breath; no palpitations; no edema; no calf pain with exertion Lifestyle:regular exercise; exercises 2-4 times/week; exercises for 30-90 minutes/day; limiting/avoiding salt Medications:taking medications as directed; no side effects from medication; checks blood pressure at home, range: (under 130/90) Follow up for BP.Plans for reclast in fall for osteoporosis. Emre Chacon MD [address] [address], [place], [address], [facility] 05/13/2025 13:27:53 OBGyn Episode No OBEpisode recorded.
--- OUTSIDE RECORDS SUMMARY | 2025-05-18 12:46 | XMS_ITS | Continuity of Care Document ---
Author Organization [facility] [address] [place] [address] Phone [phone] Care Team Providers Care Project Economist Name Role Phone Emre Guillermo MD Care Team Information Receive r [phone] Problems Active Problems Provider Date Irritable bowel syndrome Clara Perry M.D. Onset: 01/26/2023 Chronic constipation Lorena Page Onset: 01/26/2023 Osteoporosis Clara Perry M.D. Ons et: 01/26/2023 Multinodular goiter Clara Perry M.D. Onset: 01/26/2023 Diverticulitis Clara Perry M.D. Ons et: 01/26/2023 Benign paroxysmal positional vertigo Clara Sood M.D. Onset: 01/26/2023 Benign meningioma Clara Perry M.D. O nset: 01/26/2023 Migraine Clara Perry M.D. Ons et: 01/26/2023 Anxiety Clara Perry M.D. Ons et: 01/26/2023 Depressive disorder Clara Perry M.D. Onset: 01/26/2023 Obstructive sleep apnea syndrome Clara Simental M.D. Onset: 01/26/2023 Low back pain Clara Perry M.D. Ons et: 01/26/2023 Carcinoma of breast Clara Perry M.D. 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 02/06/2024 Multivitamin Adults 50+Adlt 50+ Tablets 1 by mouth every day Clara Perry M.D. 02/06/2024 Escitalopram Udkndvu22gt Tablets Take 1 daily Unknown 00 Amlodipine Dmsfdplr5aw Tablets Take 1 daily Terrie Guillermo MD Botydoiebjwvc931vp Tablets Take 1/2 tablet at night Unknown Rizatriptan Fmojlgvz6bo Tablets Take 1 Tablet Once, May Repeat AT 2 Hour Intervals DO Not Exceed 30 MG In 24 Leena Unknown Valacyclovir AYP628ht Tablets Take 1 Tablet By Mouth Twice A Day Unknown Flonase Allergy Jelwop58hdh/Act Suspension Two sprays each nostril daily 9.900ml Clara Perry M.D. Lorazepam0.5mg Tablets 1 tabs prn Unknown Sqthtmxdt06uv Tablets Take 1 Tablet By Mouth Everyday AT Bedtime Emre Guillermo MD Vital Signs Date Vital Result Comment 2025 2:32pm BP Systolic 118 mmHg BP Diastolic 78 mmHg Heart Rate 86 /min Height 64.5 inches 5'4.50 Weight 120.00 lb BMI (Body Mass Index) 20.3 kg/m2 Results Test Acquired Date Facility Test Result H/L Range Note Creatinine 01/27/2025 [facility] Creatinine 0.66 mg/dL 0.57-1.00 eGFR 95 mL/min/1.73 >59 Calcium 01/27/2025 [facility] Calcium 8.9 mg/dL 8.7-10.3 Albumin 01/27/2025 [facility] Albumin 4.3 g/dL 3.9-4.9 TSH Rfx on Abnormal to Free T4 01/27/2025 [facility] TSH Rfx on Abnormal to Free T4 0.639 uIU/mL 0.450-4.5 00 Calcium 11/05/2024 [facility] Calcium <pending> Albumin 11/05/2024 [facility] Albumin <pending> Creatinine 11/05/2024 [facility] Creatinine <pending> TSH RFX On Abnormal To Free T4 09/15/2024 [facility] TSH RFX On Abnormal To Free T4 <pending> Alk Phos 07/07/2022 [facility] Alk Phos 70 U/L (35-104) 25Oh Vitamin D 07/07/2022 [facility] 25Oh Vitamin D 34.8 NG/ML (20-50) N-Telopeptide Cross Links, Urine 07/07/2022 [facility] Cross Linked N-Telopeptides 154 1 Creat, Urine 70.7 2 N-Telopeptide/C re at Ratio 25 3 NTX Interpretaion Comment 4 1 Reference range: Not Estab. Unit: nmol BCE Test performed at [address] [address] 2 Reference range: Not Estab. Unit: mg/dL Test performed by [facility], [address] [place] [address] 3 Reference range: 0 t o 89 Unit: nM BCE/mM Cr 4 (NOTE) The N-telopeptide and Creatinine are used to calculate the N-telo/Creat. Ratio which is referred to as NTx . Suggested guidelines for the clinical use of NTx are as follows: 1. Menopausal Women not on Hormone Replacement Therapy (HRT): Women with a baseline NTx value >38 are at significant risk for a decrease in bone mineral density (BMD) after 1 year compared to women on HRT. The probability of a decline in BMD increases with NTx value as follows: (1): Baseline NTx Probability of Decrease in BMD 18- 38 1.4 p EQ 0.28 38- 51 2.5 p EQ 0.03 51- 67 3.8 p EQ 0.0006 67-188 17.3 p EQ 0.0001 2. Menopausal Women Receiving Antiresorptive Therapy: The probability that treatment is effective after three months is increased when the measured NTx value is <or EQ 38 nM BCE/mM MAIL ORDER BILLER, or NTx has decreased >or EQ 30% from baseline.[1] 3. Patients with Paget's Disease of Bone: The probability that treatment is effective after one month is increased when the measured NTx value is within the reference range, or NTx has decreased >or EQ 30% from baseline.[2] 1. Candace CH, Judy NH, Calin ALEGRE, et al. Am J Med, 102:29-37,1996. (1):M757, 1995. 2. Bone H, Priyanka J, et al. J Bone Min Res.11(1):M757,1995 [place] [address] Medical Devices Description No Information Available Encounters Type Date Location Provider Dx Diagnosis Office Visit 2025 2:30p Main Office Clara Perry M.D. M81.0 Age-related osteoporosis w/o current pathological fracture E04.2 Nontoxic multinodula r goiter Assessments Date Code Description Provider 2025 M81.0 Age-related oste oporosis without current pathological fracture Clara Perry M.D. 2025 E04.2 Nontoxic multinodular goiter Clara Perry M.D. Plan of Treatment Future Appointment(s):* 09/16/2025 3:15 pm - Clara Perry M.D. at Main Office 01/26/2023 - Clara Perry M.D.* M81.0 Age-related osteoporosis without current pathological fracture * E04.2 Nontoxic multinodular goiter Functional Status Description No Information Available Mental Status Description No Information Available Referrals Description No Information Available
--- OUTSIDE RECORDS SUMMARY | 2025-05-18 12:46 | XMS_ITS | Patient Health Record ---
Author Organization [facility] Address [address] [place] [address] Care Team Providers Care Field Crop I Farmworker Name Role Phone Emre Guillermo Primary Care Provider Juan Beltran Jr Unavailable [phone] Allergies Allergen (clinical drug ingredient) Drug/Non Drug Allergy documented on EMR Reaction Allergy Type Onset Date Status Scopolamine HBr Unknown Drug Allergy A ctive surgical tape (uncoded) Unknown Allergy Active enviromental trigger s (uncoded) Unknown Allergy Active Results Component Value Reference Range Notes US abdomen complete Reviewed date:04/09/2025 11:13:44 AM Interpretation: Performing Lab: Notes/Report: [address] [address] Ultrasound Report Signed Patient: Ewa Robins MR#: [id number] 3 : 1955 Acct:[id number] Age/Sex: 70 / F ADM Date: 04/08/25 Loc: HO.US Attending Dr: Juan Felipe MD Ordering Physician: Juan Felipe MD Date of Service: 04/08/25 Procedure(s): US abdomen complete Accession Number(s): [id number] cc: Juan Felipe MD; Emre Guillermo MD EXAMINATION: US ABDOMEN HISTORY: GENERALIZED ABD PAIN TECHNIQUE: Real-time grayscale ultrasound imaging of the abdomen was performed and images were reviewed. COMPARISON: Comparison is made with the prior examination dated 06/06/2021. FINDINGS: Liver: The liver is normal in size. The liver demonstrates normal homogeneous echotexture. There are multiple simple cysts measuring up to 3.6 x 3.3 x 3.3 cm. No intrahepatic biliary ductal dilatation is identified. There is normal hepatopedal flow in the portal vein. Gallbladder and biliary tree: The gallbladder is unremarkable, without evidence of calculi, wall thickening, or pericholecystic fluid. There is no sonographic Winters sign. The common bile duct is normal in caliber measuring 4 mm. Kidneys: The right kidney measures 9.7 cm in length and demonstrates an 8 mm hyperechoic focus in the interpolar region which likely represents an angiomyolipoma (previously 6 mm in size). The left kidney measures 9.7 cm in length and demonstrates a 10 x 9 x 7 mm echogenic focus in the interpolar region which likely represents an angiomyolipoma (previously 8 mm in size). There is no hydronephrosis. Pancreas: The pancreatic head, neck, and body are unremarkable. The pancreatic tail is obscured by bowel gas. Spleen: The spleen is normal in size and contour, measuring 6.4 cm in length. Abdominal aorta and inferior vena cava: The visualized portions of the abdominal aorta and inferior vena cava are normal in caliber. There is no free fluid in the abdomen. 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 Otherwise unremarkable abdominal ultrasound Electronically signed by: Deshawn Monroy MD 04/08/2025 08:48 AM EDT Dictated By: Deshawn Monroy MD Signed By: <Electronically signed by Dsehawn Monroy MD in OV> 04/08/25 0848 DD/ 0807 TD/TT: 04/08/25 0826 Enrollment Management Coordinator: Reason For Referral No Information Medications Medication SIG (Take, Route, Frequency, Duration) Notes Start Date End Date Status Fiber - as directed Orally A ctive Calcium 500 MG 1 tablet with meals Orally Once a day Active Rizatriptan Benzoate 5 MG 1 tablet Orally prn Active Saline Nasal [place] 0.65 % 2 sprays in each nostril as needed Nasally as directed/prn PRN Active Naltrexone 3 as directed at bedtime/prn Active MiraLax - 1 packet mixed with 8 ounces of fluid Orally Once a day PRN Active Rosuvastatin Calcium 5 MG 1 tablet Orally Once a day for 30 day(s) on hold Active Zetia 10 MG 1 tablet Orally Once a day for 30 day(s) on hold Active Lysine Active Flonase Allergy Relief 50 MCG/ACT 1 spray in each nostril Nasally Once a day for 30 day(s) Active Dicyclomine HCl 10 MG 1 tablet Orally 2- 4 times a day for 30 days as needed 04/04/2019 Not-Taking Enzyme pancremax bid Act gerard Magnesium 250 MG 1 capsule with a meal Orally bid Active Probiotic - megasporam once a day PRN Active Multi-Enzyme Active Artificial Tear 2 drops 2 drops in each eye as directed/as needed Active Citalopram Hydrobromide 20 MG 1 tablet ,, sunday all other days 10 mg Orally Once a day/prn Active Multivitamin Adult - 1 tablet Orally onc e a day Active amLODIPine Besylate 5 MG 1 tablet Orally Once a day Active Flonase Active LORazepam 0.5 MG 0.5 ml as needed Orally as needed Active Tylenol Sinus Convenience Pack -- 1 tablet orally as needed/as directed Active OXcarbazepine 150 MG 1 tablet Orally onc e a day Active Vitamin D3 2000 UNIT 1 capsule Orally Once a day Active valACYclovir HCl 1 GM 1 tablet Orally prn PRN Active Immunizations Vaccine Route Administration Date Status Comme nts Flu vaccine no Preserv 3 and > Unknown 07/31/2017 Admin istered Influenza Unknown 09/03/2018 Administered Influenza Unknown 08/19/2019 Administered Influenza Unknown 08/04/2020 Administered Influenza Unknown 09/12/2021 Administered Influenza Unknown 08/02/2022 Administered Influenza Unknown 09/04/2023 Administered Influenza Unknown 08/05/2024 Administered Social History Tobacco Use: Social History Observation Description Date Details (start date - stop date) Former Smoker NA - NA Tobacco Use/Smoking Question Answer Notes Patient is a former smoker Problems Problem Type SNOMED Code ICD Code Onset Dates Problem Status W/U Status Risk Notes Problem 927566796 Colon cancer screening (Z12.11) Active confirmed Problem Diverticular disease of colon (236948454) Diverticulosis of large intestine without perforation or abscess without bleeding (K57.30) Active confirmed Problem Irritable bowel syndrome (71587612) IBS (irritable bowel syndrome) (K58.9) Active confirmed Problem Gastroesophageal reflux disease (850118960) Gastroesophageal reflux disease (K21.9) Active confirmed Problem 439308689 Gastroesophageal reflux disease without esophagitis (K21.9) Active confirmed Problem 180939546 Family history o f colon cancer (Z80.0) Active confirmed Problem 09292100824546084 Abnormal ultrasound of liver (R93.2) Active confirmed Problem 627985407 Irritable bowel syndrome with constipation (K58.1) Active confirmed Problem 823534702 RUQ pain (R10.11) Active confirmed Vital Signs Temperature 98.9 degrees Fahrenheit 05/18/2025 Blood pressure diastolic 01 mm Hg 05/18/2025 Height 64.75 in 05/18/2025 Blood pressure systolic 001 mm Hg 05/18/2025 Weight 120 lbs 05/18/2025 BMI 20.12 kg/m2 05/18/2025 Encounters Encounter Location Date Provider Diagnosis [facility] [address] [place] [phone] 05/18/2025 Juan Felipe Jr IBS (irritable bowel syndrome) K58.9 and Abnormal ultrasound of liver R93.2 [facility] [address] [place] [phone] 08/25/2024 Juan Felipe Jr Gastroesophageal reflux disease without esophagitis K21.9 and IBS (irritable bowel syndrome) K58.9 [facility] [address] [place] [phone] 11/24/2024 Juan Felipe Jr [facility] [address] [place] [phone] 02/25/2025 Juan Felipe Jr Generalized abdominal pain R10.84 [facility] [address] [place] [phone] 04/09/2025 Juan Felipe Jr [facility] [address] [place] [phone] 04/24/2025 Juan Felipe Jr Assessments Encounter Date Diagnosis (ICD Code) Assessment Notes Treatment Notes Treatment Clinical Notes Section Notes 05/18/2025 IBS (irritable bowel syndrome) (ICD-10 - K58.9) We discussed he r symptoms today. We recommended she continue to use Metamucil and MiraLAX to regulate her bowels. She will have further evaluation of her concerns regarding celiac disease with tissue transglutaminase antibody testing as well as IgA levels. Liver function test will be obtained because of her abdominal ultrasound as these have not been updated in some time. Follow-up will be in 6 to 12 months. We reviewed her CT scan from earlier in the year which showed no evidence of any acute GI pathology involving her stomach small bowel or colon. 08/25/2024 IBS (irritable bowel syndrome) (ICD-10 - K58.9) Currently, she appears to be doing well. We discussed gastroesophageal reflux disease and irritable bowel syndrome. We discussed diet, lifestyle modifications, and weight management. She will continue her present regimen. Followup will be in 6-12 months. She'll call if she has problems. 08/25/2024 Gastroesophageal reflux disease without esophagitis (ICD-10 - K21.9) Gastroesophageal reflux disease material was printed Currently, she appears to be doing well. We discussed gastroesophageal reflux disease and irritable bowel syndrome. We discussed diet, lifestyle modifications, and weight management. She will continue her present regimen. Followup will be in 6-12 months. She'll call if she has problems. 02/25/2025 Generalized abdominal pain (ICD-10 - R10.84) 05/18/2025 Abnormal ultrasound of liver (ICD-10 - R93.2) We discussed her symptoms today. We recommended she continue to use Metamucil and MiraLAX to regulate her bowels. She will have further evaluation of her concerns regarding celiac disease with tissue transglutaminase antibody testing as well as IgA levels. Liver function test will be obtained because of her abdominal ultrasound as these have not been updated in some time. Follow-up will be in 6 to 12 months. We reviewed her CT scan from earlier in the year which showed no evidence of any acute GI pathology involving her stomach small bowel or colon. Plan Of Treatment Pending Test Test Name Order Date BUN 02/20/2018 CREATININE 02/20/2018 LIVER PROFILE 05/18/2025 LIVER PROFILE 06/15/2022 IgA 05/18/2025 TRANSGLUTAMINASE AB IGA 05/18/2025 PANCREATIC ELASTASE 06/15/2022 FECAL FAT QUAL 06/15/2022 MRI ABD W&WO CONTRAST 02/20/2018 US abdomen complete 02/25/2025 Future Test Test Name Order Date COLONOSCOPY 10/04/2022 Next Appt Details Provider Name:Juan richards Jr, 12/17/2025 01:15:00 PM, [address], [address], [place], [address], Insurance Providers Payer Name Payer Address Payer Phone Subscriber Number Group Number Insured Name Patient Relationship to Insured Coverage Start Date Coverage End Date MEDICARE OF [place] [address] [place] [address] [id number] EWA ROBINS Self - patient is the insured [employer] ATT[employer] CLAIMS [address] [place] [address] [id number] EWA ROBINS Self - patient is the insured Medical (General) History Medical History History ICD Code Colonoscopy 03/11, normal, ten-year follo wup hx of breast cancer irritable bowel syndrome asthma labyrinthitis hyperlipidemia meningioma fatigue anxiety hypertension osteoporosis migraine internal hemorrhoids acne asthma Upper endoscopy normal, no H. pylori or [place]'s esophagus EBV infection Surgical History Surgery Date(Month/Year) hemorrhoidectomy 2007 lump removal in left breast hysterectomy
[2025-05-18 14:16] LABS: Alanine Aminotransferase 16 U/L (0-31); Albumin Level 4.7 g/dL (3.5-5.0); Alkaline Phosphatase 89 U/L (39-117); Aspartate Amino Transferase 24 U/L (5-31); Bilirubin Direct 0.2 mg/dL (0.0-0.5); Bilirubin Total 0.5 mg/dL (0.0-1.0); Total Protein 7.4 g/dL (6.5-8.0)
[2025-05-19 04:58] LABS: Immunoglobulin A 171 mg/dL (70-320)
[2025-05-19 21:24] LABS: Transglutaminase Ab IgG <1.0 U/mL
== END 2025-05-18 12:07 | disposition home or self-care (01) ==
LOC: HO.LAB 12:06
PROVIDERS: PCP Family Medicine; Visit Provider Internal Medicine Gastroenterology
DX: K58.9 Irritable bowel syndrome, unspecified (principal); R93.2 Abnormal findings on diagnostic imaging of liver and biliary tract
CPT/HCPCS: 36415; 80076; 82784; 86364